=== PATIENT | female | born 2005 | race Hispanic/Latino ===

== ENCOUNTER 2024-07-04 02:36 | Observation (INO) | payer OTHER ==
[2024-07-04] MEDS ORDERED: hydrALAZINE 20 MG/ML VIAL SLOW IVP PRN ×2 (03:21→05:14)
[2024-07-04 03:31] LABS: Bilirubin Neg (Negative); Blood, Urine Negative (Negative); Glucose, Urine (Dipstick) Normal (Negative); Ketone, Urine Negative (Negative); Nitrite Negative (Negative); Protein, Urine (Dipstick) Negative (Neg-Trace); Specific Gravity, Urine 1.015 (1.005-1.030); Urobilinogen Normal mg/dL (Less than 2)
[2024-07-04 03:39] LABS: Leukocyte 25 (Negative)
[2024-07-04 03:40] LABS: Clarity Slightly Cloudy (Clear)
[2024-07-04 03:45] LABS: Bacteria/HPF 1+ HPF (None Seen); RBC/HPF 0-3 HPF (0-3); Squamous Epithelial 0-3 HPF (0-3); WBC/HPF 0-3 HPF (0-3)
[2024-07-04] MEDS: Lactated Ringer's 1,000 ML IV SCH ×2 (03:55→05:22)
[2024-07-04 04:08] VITALS: BMI 22.4
[2024-07-04 04:09] LABS: #Basophils 0.03 10x3/uL (0.0-0.2); #Eosinphils 0.01 10x3/uL (0.0-0.5); #Monocytes 1.08 10x3/uL (0.0-1.1); #Neutrophils 9.75 10x3/uL (1.5-8.4); %Basophils 0.3 % (0.0-2.0); %Eosinophils 0.1 % (0.0-6.0); %Monocytes 9.2 % (0.0-10.0); %Neutrophils 82.8 % (40.0-75.0); Hematocrit 25.5 % (34.9-44.5); Hemoglobin 8.9 g/dL (12.0-15.5); Mean Corpuscular HGB CONC 34.9 g/dL (32.0-36.0); Mean Corpuscular Volume 85.9 fL (81.6-98.3); Mean Platelet Volume 10.7 fL (7.4-10.4); Platelet Count 146 10x3/uL (150-450); RBC Distribution Width 13.2 % (11.5-14.5); Red Blood Cell (RBC) Count 2.97 10x6/uL (3.90-5.03); White Blood Cell (WBC) Count 11.8 10x3/uL (3.5-10.5)
[2024-07-04] MEDS: Famotidine/PF 20 mg/2ml Vial SLOW IVP SCH (04:18)
[2024-07-04] MEDS: Acetaminophen 500 MG TAB PO SCH (04:23)
[2024-07-04 04:27] LABS: ALT (SGPT) 17 U/L (8-55); AST (SGOT) 28 U/L (5-30); Albumin 3.2 g/dL (3.5-5.0); Alkaline Phosphatase 71 U/L (40-100); Anion Gap 14 mmol/L (10-20); BUN (Urea Nitrogen) Less than 4 mg/dL (8.4-21.0); Bilirubin, Total 0.3 mg/dL (0.2-1.2); Calc. Creatinine Clearance 157 mL/min (70-130); Carbon Dioxide 18 mmol/L (22-29); Chloride 108 mmol/L (98-107); Estimated GFR 136; Globulin 2.9 g/dL (2.4-3.5); Glucose 92 mg/dL (70-105); Potassium 3.8 mmol/L (3.5-5.1); Protein, Total 6.1 g/dL (6.0-8.3); Sodium 136 mmol/L (136-145)
[2024-07-04 05:09] LABS: Influenza A by NAA Not Detected (NotDetected); Influenza B by NAA Not Detected (NotDetected); SARS-CoV-2 NAA Rapid Test DETECTED (NotDetected)
[2024-07-04] MEDS ORDERED: Promethazine HCl 25 MG/ML VIAL IM PRN (05:14)
[2024-07-04] MEDS ORDERED: Zolpidem Tartrate 5 MG TAB PO PRN (05:14)
[2024-07-04] MEDS ORDERED: Ondansetron PF 4 MG/2 ML Vial IVP PRN (05:14)
[2024-07-04] MEDS ORDERED: Acetaminophen 500 MG TAB PO PRN (05:14)
[2024-07-04 05:29] VITALS: BP 80/42; TEMP 98.2
[2024-07-04] MEDS: cefTRIAXone\\ROCEPHIN 1 GM in Sodium Chloride 0.9% 100 ML IVPB SCH (05:47)
[2024-07-04] MEDS ORDERED: Sodium Chloride 0.9% 1,000 ML IV SCH (08:45)
== END 2024-07-04 13:05 | disposition home or self-care (01) ==
LOC: CSHLD/OP 02:36 → CSHLD 08:06
PROVIDERS: ADMIT Family Medicine; ATTEND Family Medicine
DX: O99.891 Other specified diseases and conditions complicating pregnancy (principal); M54.9 Dorsalgia, unspecified; R50.9 Fever, unspecified; O21.2 Late vomiting of pregnancy; O47.03 False labor before 37 completed weeks of gestation, third trimester; O98.513 Other viral diseases complicating pregnancy, third trimester; U07.1 COVID-19; Z3A.32 32 weeks gestation of pregnancy; Z79.899 Other long term (current) drug therapy; Z79.82 Long term (current) use of aspirin
CPT/HCPCS: 80053; 81003; 81015; 85025; 87086; 96360; 96374; 96375; 99285; G0378; J0696; J3490

== ENCOUNTER 2024-07-26 17:36 | Inpatient (IN) | payer OTHER ==
[2024-07-26 18:11] VITALS: BMI 21.7
[2024-07-26] MEDS ORDERED: hydrALAZINE 20 MG/ML VIAL SLOW IVP PRN ×2 (18:38→20:46)
[2024-07-26] MEDS: Calcium Carbonate 500 MG ChewTAB PO SCH (20:21)
[2024-07-26] MEDS ORDERED: Promethazine HCl 25 MG/ML VIAL IM PRN (20:46)
[2024-07-26] MEDS ORDERED: Misoprostol 200 MCG TAB PR PRN (20:46)
[2024-07-26] MEDS ORDERED: Lidocaine 1% (PF) 30 ML VIAL SC PRN (20:46)
[2024-07-26] MEDS ORDERED: Carboprost 250 MCG/ML AMP IM PRN (20:46)
[2024-07-26] MEDS ORDERED: Diphenoxylate HCl/Atropine Tablet PO PRN (20:46)
[2024-07-26] MEDS ORDERED: Oxytocin 30 units/NS 500 ML 500 ML IV SCH ×2 (21:00)
[2024-07-26] MEDS: Lactated Ringer's 1,000 ML IV SCH (21:22)
[2024-07-26] MEDS: Azithromycin 500 MG in Sodium Chloride 0.9% 250 ML IVPB SCH (21:22)
[2024-07-26 21:47] LABS: Hematocrit 29.4 % (34.9-44.5); Hemoglobin 10.1 g/dL (12.0-15.5); Mean Corpuscular HGB CONC 34.4 g/dL (32.0-36.0); Mean Corpuscular Hemoglobin 30.2 pg (27.0-33.0); Mean Platelet Volume 11.2 fL (7.4-10.4); Platelet Count 170 10x3/uL (150-450); RBC Distribution Width 13.5 % (11.5-14.5); Red Blood Cell (RBC) Count 3.34 10x6/uL (3.90-5.03); White Blood Cell (WBC) Count 13.2 10x3/uL (3.5-10.5)
[2024-07-26] MEDS: Betamet Acet/Betamet Na Ph 30 MG/5 ML VIAL IM SCH (23:18)
[2024-07-26 23:26] LABS: Syphilis Antibody Nonreactive (Nonreactive); Syphilis Antibody Index 0.03 S/CO (<1.00 Non-Reactive)
[2024-07-26] MEDS: Ampicillin 2 GM in Sodium Chloride 0.9% 100 ML IVPB SCH (23:29)
[2024-07-26 23:30] LABS: HBsAg Index 0.24 S/CO (0-0.99); Hep B Surf Ag - L&D Non-Reactive S/CO (NonReactive)
[2024-07-27] MEDS: Calcium Carbonate 500 MG ChewTAB PO SCH ×2 (06:46→18:25)
[2024-07-27] MEDS: Betamet Acet/Betamet Na Ph 30 MG/5 ML VIAL IM SCH (23:58)
[2024-07-28] MEDS: Oxytocin 30 units/NS 500 ML 500 ML IV SCH (12:37)
[2024-07-28] MEDS: fentaNYL 50 mcg/mL 1 mL Vial ONE (20:05)
[2024-07-28] MEDS: Methylergonovine 0.2 MG/ML VIAL IM PRN (20:18)
[2024-07-28] MEDS: Ondansetron PF 4 MG/2 ML Vial IVP PRN (21:38)
[2024-07-28] MEDS: Tranexamic Acid 1,000 MG/10 ML VIAL IVP PRN (21:43)
[2024-07-28] MEDS: Ampicillin/Sulbactam 3 GM in Sodium Chloride 0.9% 100 ML IVPB SCH (22:26)
[2024-07-28] MEDS ORDERED: Promethazine HCl 25 MG/ML VIAL IM PRN (22:34)
[2024-07-28] MEDS ORDERED: Milk Of Magnesia 30 ML UDCUP PO PRN (22:34)
[2024-07-28] MEDS ORDERED: hydrALAZINE 20 MG/ML VIAL SLOW IVP PRN (22:34)
[2024-07-28] MEDS ORDERED: Lanolin Ointment 7 GM TUBE TOP PRN (22:34)
[2024-07-28] MEDS ORDERED: Boostrix 0.5 ML (Tdap) VIAL (>/=7 yrs of age) IM ONE (22:34)
[2024-07-28] MEDS ORDERED: Ondansetron PF 4 MG/2 ML Vial IVP PRN (22:34)
[2024-07-28] MEDS ORDERED: Benzocaine-Menthol 82.5 ML CAN TOP PRN (22:34)
[2024-07-28] MEDS ORDERED: Bisacodyl 10 MG SUPP PR PRN (22:34)
[2024-07-28] MEDS: Ibuprofen 800 MG TAB PO SCH (22:58)
[2024-07-28] MEDS: HYDROcodone/Acetaminophen 5/325 mg Tablet PO PRN (22:59)
[2024-07-29 05:17] LABS: Hematocrit 24.5 % (34.9-44.5); Hemoglobin 8.3 g/dL (12.0-15.5); Mean Corpuscular HGB CONC 33.9 g/dL (32.0-36.0); Mean Corpuscular Volume 88.4 fL (81.6-98.3); Mean Platelet Volume 10.9 fL (7.4-10.4); Platelet Count 148 10x3/uL (150-450); RBC Distribution Width 13.3 % (11.5-14.5); Red Blood Cell (RBC) Count 2.77 10x6/uL (3.90-5.03); White Blood Cell (WBC) Count 24.6 10x3/uL (3.5-10.5)
[2024-07-29 05:39] LABS: D-Dimer Test 23.71 mcg/mL (0.19-0.50); Prothrombin Time 11.3 sec (9.5-12.1)
[2024-07-29] MEDS: Docusate 100 MG CAP PO SCH ×2 (06:37→07:33)
[2024-07-29] MEDS: Lidocaine 1% (PF) 30 ML VIAL ONE (06:37)
[2024-07-29] MEDS: fentaNYL 50 mcg/mL 1 mL Vial ONE (06:37)
[2024-07-29] MEDS: Prenatal Vitamin 1 TAB PO SCH (07:33)
[2024-07-29] MEDS: Ferrous Sulfate 325 MG TAB PO SCH (07:33)
[2024-07-30 14:38] VITALS: BP 110/66; TEMP 98.8
== END 2024-07-30 13:00 | disposition home or self-care (01) | DRG 806 ==
LOC: CSHLD/OP 17:36 → CSHLD 21:18 → CSHPP 07-29 01:45
PROVIDERS: ADMIT Family Medicine; ATTEND Family Medicine
PROC: 10907ZC Drainage of Amniotic Fluid, Therapeutic from Products of Conception, Via Natural or Artificial Opening (ICD-10-PCS; principal; 2024-07-28)
PROC: 10E0XZZ Delivery of Products of Conception, External Approach (ICD-10-PCS; 2024-07-29)
PROC: 0UQMXZZ Repair Vulva, External Approach (ICD-10-PCS; 2024-07-29)
DX: O67.9 Intrapartum hemorrhage, unspecified (principal); O72.1 Other immediate postpartum hemorrhage; Z37.0 Single live birth; Z3A.35 35 weeks gestation of pregnancy; Z79.82 Long term (current) use of aspirin; Z98.890 Other specified postprocedural states; O70.0 First degree perineal laceration during delivery
CPT/HCPCS: 36415; 85027; 85049; 85300; 85362; 85384; 85610; 85730; 86780; 86850; 86900; 86901; 87340; 88307; 99285; J0290; J0295; J0456; J0702; J2210; J2405; J2590; J3010; J7050; J7120